=== PATIENT | male | born 1995 | race Two or more races ===

== ENCOUNTER 2023-06-13 19:26 | Emergency (ER) | payer OTHER ==
[~2023-06-13] VITALS: Ht 162.6 cm; Wt 59.0 kg
[2023-06-13 23:10] LABS: HEMATOCRIT 46.2 % (39.0-48.0); HEMOGLOBIN 16.2 g/dL (13-16.00); MEAN CELL VOLUME 85.7 fL (80.0-100.00); MEAN CORPUSCULAR HGB CONC 35.1 g/dl (32.0-36.0); PLATELET COUNT 360 K/uL (150-450); RED BLOOD COUNT 5.39 M/uL (4.00-6.00); RED CELL DISTRIBUTION WIDTH 13.3 % (11.5-14.5)
[2023-06-13 23:28] LABS: ALBUMIN 4.4 gm/dL (3.4-5.0); BILIRUBIN TOTAL 0.85 mg/dL (0.3-1.2); CREATININE SERUM 1.06 mg/dL (0.70-1.30); GFR 82.6; GLOBULINA 3.7 G/DL (2.4-3.5); TOTAL PROTEIN 8.1 gm/dL (6.4-8.2)
[2023-06-14 00:15] LABS: POTASSIUM 2.99 mEq/L (3.5-5.1)
[2023-06-14 01:06] LABS: CALCIUM 9.4 mg/dL (8.5-10.1); CREATININE SERUM 0.99 mg/dL (0.70-1.30); GFR 89.37; POTASSIUM 3.37 mEq/L (3.5-5.1)
[2023-06-14] MEDS ORDERED: VISTARIL25 MG PO (03:36)
== END 2023-06-14 04:14 | disposition home or self-care (01) ==
LOC: ER 19:27
PROVIDERS: General Practice
DX: R07.89 Other chest pain (principal); F41.9 Anxiety disorder, unspecified; Z88.0 Allergy status to penicillin

== ENCOUNTER 2023-08-17 19:19 | Emergency (ER) | payer OTHER ==
[~2023-08-17] VITALS: Ht 162.6 cm; Wt 59.0 kg
[~2023-08-17 19:19] MED LIST: VISTARIL25 MG PO
[2023-08-17 20:01] LABS: HEMATOCRIT 46.3 % (39.0-48.0); MEAN CELL VOLUME 87.3 fL (80.0-100.00); MEAN CORPUSCULAR HEMOGLOBIN 30.1 pg (27.00-32.0); MEAN CORPUSCULAR HGB CONC 34.5 g/dl (32.0-36.0); PLATELET COUNT 214 K/uL (150-450); RED BLOOD COUNT 5.31 M/uL (4.00-6.00); RED CELL DISTRIBUTION WIDTH 13.6 % (11.5-14.5)
== END 2023-08-17 20:52 | disposition home or self-care (01) ==
LOC: ER 19:19
DX: J06.9 Acute upper respiratory infection, unspecified (principal); Z20.822 Contact with and (suspected) exposure to COVID-19; Z88.0 Allergy status to penicillin

== ENCOUNTER 2023-10-23 15:29 | Emergency (ER) | payer OTHER ==
[~2023-10-23] VITALS: Ht 162.6 cm; Wt 59.0 kg
[2023-10-23 18:32] LABS: HEMATOCRIT 48.4 % (39.0-48.0); HEMOGLOBIN 16.9 g/dL (13-16.00); MEAN CELL VOLUME 87.9 fL (80.0-100.00); MEAN CORPUSCULAR HEMOGLOBIN 30.7 pg (27.00-32.0); MEAN CORPUSCULAR HGB CONC 34.9 g/dl (32.0-36.0); PLATELET COUNT 225 K/uL (150-450); RED BLOOD COUNT 5.51 M/uL (4.00-6.00); RED CELL DISTRIBUTION WIDTH 13.3 % (11.5-14.5)
[2023-10-23 18:44] LABS: BILIRUBIN TOTAL 0.3 mg/dL (0.3-1.2); CALCIUM 9.9 mg/dL (8.5-10.1); CREATININE SERUM 1.2 mg/dL (0.70-1.30); GFR 71.09; GLOBULINA 3.6 G/DL (2.4-3.5); POTASSIUM 3.9 mEq/L (3.5-5.1); TOTAL PROTEIN 7.6 gm/dL (6.4-8.2)
== END 2023-10-23 19:28 | disposition home or self-care (01) ==
LOC: ER 15:30
PROVIDERS: General Practice
DX: B34.9 Viral infection, unspecified (principal); Z88.0 Allergy status to penicillin

== ENCOUNTER 2024-09-01 15:18 | Emergency (ER) | payer OTHER ==
[~2024-09-01] VITALS: Ht 162.6 cm; Wt 61.2 kg
[2024-09-01] MEDS ORDERED: ACETAMINOPHEN 500 MG GEL..CAP PO ONE (19:00)
[2024-09-01 20:08] LABS: HEMATOCRIT 47.2 % (39.0-48.0); MEAN CELL VOLUME 87.4 fL (80.0-100.00); MEAN CORPUSCULAR HEMOGLOBIN 29.7 pg (27.00-32.0); PLATELET COUNT 294 K/uL (150-450); RED BLOOD COUNT 5.41 M/uL (4.00-6.00); RED CELL DISTRIBUTION WIDTH 12.9 % (11.5-14.5)
== END 2024-09-01 22:45 | disposition home or self-care (01) ==
LOC: ER 15:20
PROVIDERS: Preventive Medicine Public Health & General Preventive Medicine
DX: J06.9 Acute upper respiratory infection, unspecified (principal); J00 Acute nasopharyngitis [common cold]; Z20.822 Contact with and (suspected) exposure to COVID-19; E16.2 Hypoglycemia, unspecified; Z88.0 Allergy status to penicillin